=== PATIENT | male | born 1960 | race Caucasian/White ===

== ENCOUNTER → 2022-10-30 10:43 | Outpatient (CLI) | payer OTHER, SELFPAY ==
--- NOTE | 2022-10-30 | DI.NM.S_ITS ---
PROCEDURE: [place] BONE SCAN WHOLE BODY RADIOPHARMACEUTICAL: 19.9 mCi Tc-99m MDP IV. INDICATIONS: Prostate cancer. TECHNIQUE: Delayed whole-body scintigrams were obtained approximately 3-4 hours after intravenous injection of radiotracer. Anterior and posterior views were acquired from vertex to feet. Additional left and right oblique views of the pelvis were obtained. COMPARISON: None. FINDINGS: There is a focal uptake in the right iliac bone adjacent to the sacroiliac joint, suspicious for metastasis. Foci of increased activity are so seen in the area of T4, T7 and L2, suspicious for metastases. No lesions are identified in skull, sternum, clavicles, scapulae, ribs, and visualized shafts of the long bones. There are foci of increased uptake in cervical, thoracic and lumbar spine most likely secondary to degenerative disc and facet disease; early metastasis to spine could be obscured by degenerative changes. There are foci of increased periarticular activity involving, compatible with degenerative/arthritic changes. Suspect bilateral shoulder plasties. IMPRESSION: 1. Increased activity in the right iliac bone adjacent to the SI joint suspicious for metastasis. Recommend radiographic correlation. 2. Foci of increased uptake in thoracic spine and upper lumbar spine, suspicious for metastasis. Recommend radiographic or MRI correlation. Dictated by: Lobo Dooley M.D. on 10/30/2022 at 16:59 Approved by: Lobo Dooley M.D. on 10/30/2022 at 17:04
== END ==
PROVIDERS: Referring Provider Internal Medicine Hematology & Oncology; Visit Provider Internal Medicine Hematology & Oncology
DX: C61 Malignant neoplasm of prostate (principal)
CPT/HCPCS: 78306; A9503

== ENCOUNTER → 2023-01-15 09:05 | Outpatient (CLI) | payer OTHER, SELFPAY ==
--- NOTE | 2023-01-15 | DI.NM.S_ITS ---
PROCEDURE: [place] BONE SCAN WHOLE BODY RADIOPHARMACEUTICAL: 20.6 mCi Tc-99m MDP IV. INDICATIONS: PROSTATE CANCER TECHNIQUE: Delayed whole-body scintigrams were obtained approximately 3-4 hours after intravenous injection of radiotracer. Anterior and posterior views were acquired from vertex to feet. COMPARISON: [place], [place], [place] BONE SCAN WHOLE BODY, 10/30/2022, 14:16. FINDINGS: Numerous abnormal foci of uptake can be seen, particularly involving the midthoracic spine. There is also involvement of the cervical spine and lumbar spine. The pelvis is clearly involved, particularly involving the region of the right sacroiliac joint and the left pubis. Multiple foci of relatively symmetric bony degenerative change can also be seen. No significant soft tissue abnormality is seen. The kidneys demonstrate normal positions. IMPRESSION: Extensive bony metastatic disease, which is clearly progressed compared to the recent prior bone scan dated 10/30/2022. Dictated by: Rc Scott M.D. on 01/15/2023 at 17:27 Approved by: Rc Scott M.D. on 01/15/2023 at 17:28
== END ==
PROVIDERS: PCP Family Medicine; Referring Provider Internal Medicine Hematology & Oncology; Visit Provider Internal Medicine Hematology & Oncology
DX: C61 Malignant neoplasm of prostate (principal); C79.51 Secondary malignant neoplasm of bone
CPT/HCPCS: 78306; A9503

== ENCOUNTER 2024-06-01 07:46 | Outpatient (CLI) | payer OTHER, SELFPAY ==
[2024-06-01] VITALS (13 sets, daily range): BP systolic 113–138; BP diastolic 59–92; PULSE 70–86; RESP 11–20; TEMP 36.1; O2SAT 95–100
--- NOTE | 2024-06-01 | DI.CT.S_ITS ---
PROCEDURE: CT BIOPSY BONE DEEP Sedation analgesia for 15 minutes. INDICATIONS: PROSTATE CANCER TECHNIQUE: The indications, alternatives, benefits, risks, and possible complications of the procedure were communicated to the patient. Informed written consent from the patient was obtained and placed in the chart. Continuous EKG and hemodynamic monitoring was started by trained personnel. The patient was brought to the CT suite and crane assembler spiral CT imaging was performed with localization grid. The appropriate site for percutaneous access to the left posterior iliac spine target was marked, was prepped and draped sterilely, and was infused with local anaesthesia. Under CT guidance, a trocar and needle set was advanced to the biopsy target, and both aspiration and core specimen(s) were obtained. The trocar and needle were then removed, and the patient was sent for post-procedure monitoring. COMPARISON: None. FINDINGS: Biopsy site: Left posterior iliac spine Needle: 11 gauge biopsy needle with introducer trocar. Number of passes: 1 Medications: 1% lidocaine for local anaesthesia. IV Fentanyl and Versed for conscious sedation for 15 minutes (see nursing record). Complications: The trocar needle slipped along the lateral periosteum requiring replacement of the tip at the posterior no and spine. This startled the patient, but did not result in any significant pain. The patient tolerated the procedure well. No evidence of significant post-operative bleeding. IMPRESSION: CT-guided biopsy of the left posterior iliac bone [place]. Dictated by: Bay Levy M.D. on 06/01/2024 at 11:28 Approved by: Bay Levy M.D. on 06/01/2024 at 11:39
[2024-06-01 08:26] LABS: Hematocrit 25.1 % (41-53); Hemoglobin 7.9 g/dL (13.5-17.5); Mean Corpuscular HGB Conc 31.4 % (30-36); Mean Corpuscular Volume 86.1 fL (80-100); Platelet Count 316 X10^3/uL (150-400); Red Blood Cell Count 2.92 X10^6/uL (4.5-5.9); Red Cell Distribution Width 19.9 % (11.6-14.8); White Blood Cell Count 6.5 X10^3/uL (4.5-11.0)
[2024-06-01 08:34] LABS: INR 1.2 (0.9-1.3); Prothrombin Time 13.3 SECONDS (9.4-12.5)
[2024-06-01 08:42] LABS: PTT Partial Thromboplastin Tim 38 SECONDS (25.1-36.5)
[2024-06-01] MEDS: MIDAZOLAM 5 MG/ML VIAL IV (10:23)
[2024-06-01] MEDS: fentaNYL 100 MCG/2 ML INJ 25 MCG IV ×3 (10:23→11:22)
[2024-06-01] MEDS: MIDAZOLAM 2 MG/2 ML VIAL 0.5 MG IV ×2 (10:23→10:37)
[2024-06-01] MEDS: LIDOCAINE 2% INJ MDV 50ML 20 MG INJ (10:34)
== END 2024-06-01 12:00 | disposition home or self-care (01) ==
LOC: CT 07:47
PROVIDERS: Radiology Neuroradiology; PCP Physician Assistant; Referring Provider Internal Medicine Medical Oncology; Visit Provider Internal Medicine Medical Oncology
DX: C61 Malignant neoplasm of prostate (principal); C79.51 Secondary malignant neoplasm of bone
CPT/HCPCS: 20225; 77012; 85027; 85610; 85730; 99152; J2250; J3010